=== PATIENT | female | born 1965 | race African-American/Black ===

== ENCOUNTER → 2017-07-08 | Outpatient (CLI) | payer OTHER ==
--- NOTE | 2017-07-08 15:44 | PULMONARY FUNCTION TEST ---
DATE OF SERVICE: 07/08/2017 THE DLCO IS 16.3, 55% OF PREDICTED. IMPRESSION: DIFFUSING CAPACITY IS MODERATELY DECREASED. NO PREVIOUS VALUES ARE AVAILABLE FOR COMPARISON. CC: CEE TURNER MD > [email or web address]
== END ==
LOC: RT 09:01
DX: D86.9 Sarcoidosis, unspecified (principal)
CPT/HCPCS: 94729